=== PATIENT | male | born 1955 | race Caucasian/White ===

== ENCOUNTER 2017-05-24 10:37 | Inpatient (IN) | payer OTHER ==
[2017-05-24 10:44] VITALS: BMI 18.3
--- NOTE | 2017-05-24 10:57 | DR.GENAD ---
HPI - PCP Primary Care Physician: dr kamara in [place] - HPI Comment HPI Comment: HOSPITALIZE FOR PNEUMONIA AND DISCHARGE HOME ONE WEEK AGO. INCREASING SOB SINCE. WORSE TODAY. - Complaint/Symptoms Chief Complaint Doctors Comments: INCREASING SOB, CHEST PAIN, COUGH AND CONGESTION. Chief Complaint:: patient stated he has been out of home o2 for a week and has been very short of breath and congested. family called his doctor in [place] and was told to come to the er and get ems to take him to [place]. - Nurses notes reviewed Nurses Notes Review: Yes - Source History Provided: Patient, Family Member - Mode of Arrival Mode of Arrival: Wheelchair - Timing Onset of Chief Complaint: 05/17/17 Came on: Suddenly - Duration Duration: Constant Duration: Days - Severity Severity: Moderate PMH - PMH Past Medical History: Yes Past Medical History: COPD Past Surgical History: Yes Past Surgical History Comment: lung ca. - Family History History of Family Medical Conditions: No - Social History Does patient currently use any type of tobacco product: No Have you used tobacco products in the last 12 months: No Type of Tobacco Use: None Does any household member use tobacco: No Alcohol Use: None Do you use any recreational Drugs:: No Lives With: Family Lives Where: Home - infectious screening In the last 2 months have you had wt loss of >10#?: NO Have you had fever, night sweats or hemotysis?: No Have you traveled outside the country in the last 6 months?: No Isolation: Standard ROS - Review of Systems Constitutional: Malaise, Weakness, Fatigue, Loss of Appetite. negative: Chills Eyes: negative: Eye Pain, Discharge ENTM: Nose Discharge, Nose Congestion, Throat Pain. negative: Ear Pain Respiratoy: Productive Cough, Short of Breath, Wheezing. negative: Hemoptysis Cardiovascular: Chest Pain. negative: Edema, Palpitations Gastrointestinal/Abdominal: negative: Abdominal Pain, Diarrhea, Nausea, Vomiting Genitourinary: negative: Dysuria, Frequency, Hematuria Neurological: Headache, Weakness, Dizziness Musculoskeletal: Back Pain, Muscle Pain Integumentary: negative: Rash, Juandice Hematologic/Lymphatic: Easy Bleeding, Easy Bruising Endocrine: No Symptoms Reported All Other Systems: Reviewed and Negative PE - Vital Signs Vitals: Temperature 98.9 F Pulse Rate [Right Radial] 108 Pulse Rate 128 Respiratory Rate 20 Blood Pressure [Left Arm] 118/71 Blood Pressure 114/75 O2 Sat by Pulse Oximetry 96 - General Limitations: No Limitations General Appearance: Alert - Head Head Exam: Normal Inspection - Eyes Eye exam: Normal Appearance - ENT ENT Exam: Normal External Ear Exam External Ear Exam: Normal External Inspection TM/Canal Exam: Bilateral Normal Mouth Exam: Normal Inspection Throat Exam: Normal Inspection - Neck Neck Exam: Trachea Midline. negative: Tenderness, Meningismus, Lymphadenopathy - Chest Chest Inspection: Symmetric Chest Wall Rise - Respiratory Respiratory Exam: Normal Lung Sounds Bilat Respiratory Exam: Bilateral Wheezing, Bilateral Rhonchi, Upper Rhonchi, Lower Wheezing, Lower Rhonchi - Cardiovascular Cardiovascular Exam: Regular Rate, Normal Rhythm, Normal Heart Sounds - Abdominal Exam Abdominal Exam: Normal Bowel Sounds, Soft. negative: Tenderness - Extremities Extremities Exam: Normal Inspection - Back Back Exam: Normal Inspection - Neurologic Neurological Exam: Alert, Oriented X3 - Psychiatric Psychiatric Exam: Anxious - Skin Skin Exam: Normal Color MDM - Additional Information Additional Information Obtained From: Family - Differential Diagnosis Differential Diagnosis: BRONCHITIS, PNEUMONIA, COPD Course - Treatment Treatment: SEE ORDERS. - Consultation Consultation Comments: DISCUSS PATIENT WITH DR. BRYANT. HE WILL ADMIT PATIENT. - Education/Counseling Education/Counseling: Patient, Family, Education Educated On: Diagnosis ROR - Labs Reviewed Laboratory Results Reviewed?: Yes Result Diagrams: 05/24/17 11:00 05/24/17 11:06 Laboratory: WBC 15.6 X10^3/uL (3.6-10.0) H 05/24/17 11:00 RBC 4.62 X10^6/uL (4.7-6.0) L 05/24/17 11:00 Hgb 11.1 g/dL (13.5-18.0) L 05/24/17 11:00 Hct 35.0 % (42.0-54.0) L 05/24/17 11:00 MCV 75.7 fL (80.0-100.0) L 05/24/17 11:00 MCH 24.0 pg (27.0-34.0) L 05/24/17 11:00 MCHC 31.7 g/dL (33.0-35.0) L 05/24/17 11:00 RDW 21.9 % (11.6-16.5) H 05/24/17 11:00 Plt Count 294 X10^3/uL (150.0-450.0) 05/24/17 11:00 Plt Count Comment Adequate (ADEQUATE) 05/24/17 11:00 MPV 7.0 fL (7.4-11.0) L 05/24/17 11:00 Neut % 91.8 % (42.0-75.0) H 05/24/17 11:00 Lymph % 2.8 % (21.0-51.0) L 05/24/17 11:00 [place] % 5.2 % (0.0-13.0) 05/24/17 11:00 Eos % 0.1 % (0.9-2.9) L 05/24/17 11:00 Baso % 0.1 % (0.2-1.0) L 05/24/17 11:00 Neut # 14.3 x10^3/uL (2.2-4.8) H 05/24/17 11:00 Lymph # 0.4 X10^3/uL (1.3-2.9) L 05/24/17 11:00 [place] # 0.8 x10^3/uL (0.3-0.8) 05/24/17 11:00 Eos # 0.0 x10^3/uL (0.0-0.2) 05/24/17 11:00 Baso # 0.0 X10^3/uL (0.0-0.1) 05/24/17 11:00 Absolute Nucleated RBC 0.0 /100WBC 05/24/17 11:00 Total Counted 100 05/24/17 11:00 Neutrophils % (Manual) 75 % (39-76) 05/24/17 11:00 Band Neutrophils % 11 % (0-10) H 05/24/17 11:00 Lymphocytes % (Manual) 10 % (13-43) L 05/24/17 11:00 Monocytes % (Manual) 4 % (4-9) 05/24/17 11:00 Plt Morphology Comment Normal (NORMAL) 05/24/17 11:00 RBC Morphology Abnormal (NORMAL) 05/24/17 11:00 Anisocytosis 1+ A 05/24/17 11:00 Sample Site Rr 05/24/17 12:12 ABG pH 7.460 (7.35-7.45) H 05/24/17 12:12 ABG pCO2 51.0 mmHg (35.0-45.0) H* 05/24/17 12:12 ABG pO2 89.0 mmHg (80.0-100.0) 05/24/17 12:12 ABG HCO3 36.3 mmol/L (22-26) H* 05/24/17 12:12 ABG O2 Saturation 97.0 % (90-100) 05/24/17 12:12 ABG Base Excess 10.8 mmol/L (-2.0-2.0) H 05/24/17 12:12 Jackson Test Pos 05/24/17 12:12 A-a Gradient 75.0 mmHg 05/24/17 12:12 FiO2 32.000 05/24/17 12:12 Blood Gas Comments Pt malachi well. cdn 05/24/17 12:12 Sodium 143 mmol/L (136-145) 05/24/17 11:06 Corrected Sodium 144 mmol/L (136-145) 05/24/17 11:06 Potassium 3.9 mmol/L (3.5-5.1) 05/24/17 11:06 Chloride 102 mmol/L (98-107) 05/24/17 11:06 Carbon Dioxide 35.0 mmol/L (21-32) H 05/24/17 11:06 BUN 21 mg/dL (7-18) H 05/24/17 11:06 Creatinine 0.86 mg/dL (0.70-1.30) 05/24/17 11:06 Est GFR (MDRD) Af Amer > 60 (>60) 05/24/17 11:06 Est GFR (MDRD) Non-Af > 60 (>60) 05/24/17 11:06 Glucose 156 mg/dL (65-99) H 05/24/17 11:06 Lactic Acid 1.1 mmol/L (0.4-2.0) 05/24/17 11:06 Calcium 9.2 mg/dL (8.5-10.1) 05/24/17 11:06 Corrected Calcium 10.6 mg/dL (8.5-10.1) H 05/24/17 11:06 Total Bilirubin 0.70 mg/dL (0.2-1.0) 05/24/17 11:06 AST 15 Units/L (15-37) 05/24/17 11:06 ALT 18 Units/L (12-78) 05/24/17 11:06 Alkaline Phosphatase 67 Units/L (46-116) 05/24/17 11:06 Creatine Kinase 15 Units/L (39-308) L 05/24/17 11:06 CK-MB (CK-2) < 1.0 ng/mL (0-4.0) 05/24/17 11:06 CK/CKMB % Calc 6.7 % (<4) 05/24/17 11:06 Troponin I < 0.02 ng/mL (0-1.5) 05/24/17 11:06 C-Reactive Protein 190.00 mg/L (0-3.0) H 05/24/17 11:06 Total Protein 7.1 g/dL (6.4-8.2) 05/24/17 11:06 Albumin 2.3 g/dL (3.4-5.0) L 05/24/17 11:06 Globulin 4.8 g/dL (2.5-4.5) H 05/24/17 11:06 Albumin/Globulin Ratio 0.5 Ratio (1.1-2.1) L 05/24/17 11:06 - XRAY XRAY Findings: REPORT DISCUSS WITH PATIENT. - EKG Rhythm: NSR (EKG NOTED) - Diagnosis Discharge Problem: Bronchitis, COPD (chronic obstructive pulmonary disease), Pneumonia - Discharge Plan Disposition: ADMITTED INPATIENT Condition: Stable - Follow ups/Referrals - Instructions
[2017-05-24] MEDS ORDERED: MAXIPIME 1 GM IV PREMIX 1 GM/50 ML BAG IV ONE (11:22)
[2017-05-24 11:24] LABS: BASOPHILS % (AUTO) 0.1 % (0.2-1.0); EOSINOPHILS % (AUTO) 0.1 % (0.9-2.9); HEMOGLOBIN 11.1 g/dL (13.5-18.0); LYMPHOCYTES # (AUTO) 0.4 X10^3/uL (1.3-2.9); LYMPHOCYTES % (AUTO) 2.8 % (21.0-51.0); MEAN CORPUSCULAR HGB CONC 31.7 g/dL (33.0-35.0); MEAN CORPUSCULAR VOLUME 75.7 fL (80.0-100.0); MONOCYTES # (AUTO) 0.8 x10^3/uL (0.3-0.8); MONOCYTES % (AUTO) 5.2 % (0.0-13.0); NEUTROPHILS # (AUTO) 14.3 x10^3/uL (2.2-4.8); NEUTROPHILS % (AUTO) 91.8 % (42.0-75.0); PLATELET COUNT 294 X10^3/uL (150.0-450.0); RED BLOOD COUNT 4.62 X10^6/uL (4.7-6.0); RED CELL DISTRIBUTION WIDTH 21.9 % (11.6-16.5); WHITE BLOOD COUNT 15.6 X10^3/uL (3.6-10.0)
[2017-05-24] MEDS ORDERED: NS 100 ML IV 100 ML IV ONE (11:26)
[2017-05-24] MEDS ORDERED: MAXIPIME VIAL 1 GM ONE ×2 (11:26→20:29)
[2017-05-24] MEDS: NS 1000 ML 1,000 ML IV SCH ×2 (11:40→21:05)
[2017-05-24 11:41] LABS: LACTIC ACID 1.1 mmol/L (0.4-2.0)
[2017-05-24 11:44] LABS: BLOOD UREA NITROGEN 21 mg/dL (7-18); CALCIUM 9.2 mg/dL (8.5-10.1); CHLORIDE 102 mmol/L (98-107); COR NA(FOR HYPERGLY) 144 mmol/L (136-145); CREATININE 0.86 mg/dL (0.70-1.30); SODIUM 143 mmol/L (136-145); TROPONIN I < 0.02 ng/mL (0-1.5); eGFR BLACK RACES > 60 (>60); eGFR NON BLACK RACES > 60 (>60)
[2017-05-24 11:49] LABS: ALANINE AMINOTRANSFERASE 18 Units/L (12-78); ALBUMIN 2.3 g/dL (3.4-5.0); ALKALINE PHOSPHATASE 67 Units/L (46-116); ASPARTATE AMINO TRANSFERASE 15 Units/L (15-37); CKMB % 6.7 % (<4); COR CA(FOR HYPOALB) 10.6 mg/dL (8.5-10.1); CREATINE KINASE 15 Units/L (39-308); CREATINE KINASE MB < 1.0 ng/mL (0-4.0); TOTAL PROTEIN 7.1 g/dL (6.4-8.2)
--- NOTE | 2017-05-24 11:52 | RAD ---
Examination: Chest , PA and lateral views History: Chest pain, SOB, lung CA Comparison reference: None Findings: The heart is not enlarged. The heart and mediastinum are not displaced to the right. There is extensive pleural-parenchymal opacification at the right base obscuring the right lower lung, diap hragm and costophrenic angle. The left lung is over expanded. A left subclavian catheter extends to t he SVC. There is an esophageal stent present. Minimal wedge deformity involves T5 and T6 vertebral juarez dies. Impression: 1. Pleural-parenchymal disease right base with volume loss. Findings are nonspecific and may represen t inflammatory and/or neoplastic disease. Correlate with prior imaging/CT. 2. Esophageal stent is present. 3. Slight contour deformity thoracic vertebrae may be related to old trauma or metastatic disease. Reported By:
[2017-05-24 11:57] LABS: ANISOCYTOSIS 1+; BAND NEUTROPHILS % 11 % (0-10); PLATELET MORPHOLOGY COMMENT NORMAL (NORMAL)
[2017-05-24 12:17] LABS: ABG BASE EXCESS 10.8 mmol/L (-2.0-2.0)
[2017-05-24 12:18] LABS: ABG ALLEN TEST POS; ABG HCO3 36.3 mmol/L (22-26)
[2017-05-24] MEDS: LEVAQUIN PREMIX IV 500 MG 500 MG/100 ML BAG IV SCH (16:11)
[2017-05-24 17:29] LABS: BILIRUBIN,URINE NEGATIVE (NEGATIVE); BLOOD/HEMOGLOBIN,URINE 1+ (NEGATIVE); GLUCOSE, URINE NEGATIVE (NEGATIVE); KETONES,URINE NEGATIVE (NEGATIVE); LEUKOCYTE ESTERASE ,URINE 1+ (NEGATIVE); NITRITES,URINE NEGATIVE (NEGATIVE); PROTEIN,URINE 2+ (NEGATIVE); UROBILINOGEN,URINE NORMAL (NORMAL)
[2017-05-24] MEDS: DUONEB 0.5 MG/3 MG NEB SCH ×2 (17:33→20:37)
[2017-05-24 17:36] LABS: APPEARANCE,URINE CLEAR (CLEAR); BACTERIA,URINE TRACE /HPF (NEGATIVE); COLOR,URINE YELLOW (YELLOW); RBC,URINE 0-1 /HPF (NEGATIVE); SQUAMOUS EPITHELIAL CELL,UR FEW /HPF (NEGATIVE)
[2017-05-24 17:47] LABS: CKMB % 6.7 % (<4); CREATINE KINASE 15 Units/L (39-308); CREATINE KINASE MB < 1.0 ng/mL (0-4.0); TROPONIN I < 0.02 ng/mL (0-1.5)
[2017-05-24] MEDS: SPIKE MINIBAG IV SCH (21:05)
[2017-05-24] MEDS: NS IV SCH (21:05)
[2017-05-24] MEDS: MAXIPIME IV SCH (21:05)
[2017-05-24 23:38] LABS: CKMB % 7.7 % (<4); CREATINE KINASE 13 Units/L (39-308); CREATINE KINASE MB < 1.0 ng/mL (0-4.0); TROPONIN I < 0.02 ng/mL (0-1.5)
[2017-05-25] MEDS: DUONEB 0.5 MG/3 MG NEB SCH ×3 (00:54→08:46)
[2017-05-25] MEDS: NS 1000 ML 1,000 ML IV SCH ×3 (05:44→21:48)
[2017-05-25] MEDS ORDERED: MAXIPIME VIAL 1 GM ONE (05:53)
[2017-05-25] MEDS ORDERED: NS 100 ML IV + SPIKE MINIBAG* 100 ML IV ONE (05:54)
[2017-05-25] MEDS: NS IV SCH ×3 (06:15→21:27)
[2017-05-25] MEDS: MAXIPIME IV SCH ×3 (06:15→21:27)
[2017-05-25] MEDS: SPIKE MINIBAG IV SCH ×3 (06:15→21:27)
[2017-05-25 06:17] LABS: BASOPHILS % (AUTO) 0.2 % (0.2-1.0); EOSINOPHILS % (AUTO) 0.4 % (0.9-2.9); HEMATOCRIT 30.4 % (42.0-54.0); HEMOGLOBIN 9.6 g/dL (13.5-18.0); LYMPHOCYTES # (AUTO) 0.3 X10^3/uL (1.3-2.9); LYMPHOCYTES % (AUTO) 2.6 % (21.0-51.0); MEAN CORPUSCULAR HGB CONC 31.7 g/dL (33.0-35.0); MEAN CORPUSCULAR VOLUME 75.8 fL (80.0-100.0); MEAN PLATELET VOLUME 7.1 fL (7.4-11.0); MONOCYTES # (AUTO) 0.6 x10^3/uL (0.3-0.8); MONOCYTES % (AUTO) 4.9 % (0.0-13.0); NEUTROPHILS # (AUTO) 11.8 x10^3/uL (2.2-4.8); NEUTROPHILS % (AUTO) 91.9 % (42.0-75.0); PLATELET COUNT 253 X10^3/uL (150.0-450.0); RED BLOOD COUNT 4.01 X10^6/uL (4.7-6.0); RED CELL DISTRIBUTION WIDTH 21.2 % (11.6-16.5); WHITE BLOOD COUNT 12.8 X10^3/uL (3.6-10.0)
[2017-05-25 06:30] LABS: ALANINE AMINOTRANSFERASE 14 Units/L (12-78); ALKALINE PHOSPHATASE 63 Units/L (46-116); ASPARTATE AMINO TRANSFERASE 11 Units/L (15-37); BLOOD UREA NITROGEN 18 mg/dL (7-18); CALCIUM 9.3 mg/dL (8.5-10.1); CARBON DIOXIDE 34.1 mmol/L (21-32); CHLORIDE 102 mmol/L (98-107); COR CA(FOR HYPOALB) 10.9 mg/dL (8.5-10.1); COR NA(FOR HYPERGLY) 142 mmol/L (136-145); CREATININE 0.61 mg/dL (0.70-1.30); MAGNESIUM 1.6 mg/dL (1.7-2.9); SODIUM 141 mmol/L (136-145); TOTAL PROTEIN 6.6 g/dL (6.4-8.2); eGFR BLACK RACES > 60 (>60); eGFR NON BLACK RACES > 60 (>60)
--- NOTE | 2017-05-25 06:59 | RAD ---
Examination: Portable AP chest History: Chest pain SOB Comparison reference 05/24/2017 Findings: Again is noted normal heart size, deviation of heart and mediastinum to the right, extensiv e pleural-parenchymal opacification at the right base. Stable position of esophageal stent. Left subc lavian catheter is again noted in the SVC. Impression: No change since 1 day earlier. Reported By:
[2017-05-25 07:08] LABS: ANISOCYTOSIS 1+; BAND NEUTROPHILS % 5 % (0-10); PLATELET MORPHOLOGY COMMENT NORMAL (NORMAL)
[2017-05-25 07:14] LABS: ERYTHROCYTE SEDIMENTATION RATE 92 MM/HOUR (0-15)
[2017-05-25] MEDS ORDERED: PULMICORT NEB TX 0.5 MG NEB ONE (08:49)
[2017-05-25] MEDS: PULMICORT NEB TX 0.5 MG NEB SCH ×2 (08:50→20:41)
[2017-05-25] MEDS: PATIENT'S HOME MEDICATION (Budesonide-Formoterol 1 INH) INH SCH ×2 (08:50→09:57)
[2017-05-25] MEDS: LEVAQUIN PREMIX IV 500 MG 500 MG/100 ML BAG IV SCH (09:48)
[2017-05-25] MEDS: LANOXIN PO SCH (09:49)
[2017-05-25] MEDS: PREDNISONE TAB 10 MG PO SCH (09:49)
[2017-05-25] MEDS: FOLIC ACID TAB 1 MG PO SCH (09:53)
[2017-05-25] MEDS: MIDODRINE HCL 2.5 MG PO SCH ×2 (09:54→21:26)
[2017-05-25] MEDS: NIACIN PO SCH (09:54)
[2017-05-25] MEDS: ASCORBIC ACID PO SCH (09:54)
[2017-05-25] MEDS: POLYSACCHARIDE IRON COMPLEX PO SCH (09:54)
[2017-05-25] MEDS: FERROUS FUMARATE PO SCH (09:54)
[2017-05-25] MEDS: XOPENEX 1.25 MG/3 ML NEBULE NEB SCH ×4 (09:56→20:41)
--- NOTE | 2017-05-25 11:31 | DR.H&P ---
H&P - History & Physical for Day of: H&P Date: 05/24/17 - Chief Complaint Chief Complaint: short of breath - Allergies Allergies/Adverse Reactions: Allergies Allergy/AdvReac Type Severity Reaction Status Date / Time No Known Drug Allergies Allergy Verified 05/24/17 10:38 - History of Present Illness History of Present Illness: is a 62 year old white male who presented to the emergency room with complaints of increasing shortness of breath, congestion, cough, and chest pain x 1 week. Patient reports that he was hospitalized at [facility] for pneumonia. He reports being discharged one week ago. Patient states that symptoms have increasingly gotten worse since discharge. Medical history includes the following: hard of hearing, chronic bronchitis, COPD, arthritis, anemia, PEG tube, and stage 4 lung cancer for which patient has recently undergone chemo therapy and radiation. Associated symptoms include malaise, weakness, fatigue, loss of appetite, nasal congestion and discharge, throat pain, wheezing, headache, dizziness, and lower back pain. On examination, patient is noted to be tachycardic with sinus tachycardia noted on director cardiac. Bilateral lungs are noted with scattered wheezing and rhonchi throughout. Abdomen is flat, soft, and non-tender with normal bowel sounds noted in all quadrants. There is good range of motion noted in all extremities. On arrival to the ER, vitals were 98.9, 128, 20, 94% RA, 114/75. Labs, chest xray, and EKG were obtained. Abnormal lab values include the following: wbc 15.6, rbc 4.62, hgb 11.1, hct 35, carbon dioxide 35, bun 21, glucose 156, creatine kinase 15, CRP 190, albumin 4.3, globulin 4.8, A/G ratio 0.5, digoxin less than 0.30. ABG reported PH 7.460, pc02 51, p02 89, hc03 36.3, 02 saturation 97%, base excess 10.8. Urinalysis reported urine wbc 4-6, bacteria trace, leukocytes 1+, nitirites negative, urine protein 2+. Cardiac enzymes within normal limits. Blood cultures were obtained and are pending. Chest xray reported pleural-parenchymal disease right base with volume loss. Esophageal stent. Slight contour deformity thoracic vertebrae may be related to old trauma or metastatic disease. EKG reported sinus tachycardia with HR 117. He was given a neb tx in the ER with only slight improvement in shortness of breath noted. We admitted patient to the hospital for further evaluation and treatment. He was started on levaquin 750mg iv daily and maxipime 1gm iv q8h. We plan to follow up with AM labs and continue to monitor patient. - Past Medical History Past Medical History: Anemia, Arthritis, COPD Additional Medical History: stage 4 lung cancer - Past Surgical History Surgical History: Other Additional Surgical History: peg tube, esophageal stent - Family History Family Medical History: Cancer - Social History Does patient currently use any type of tobacco product: No Have you used tobacco products in the last 12 months: No Type of Tobacco Use: None How many years tobacco product used: 40 Does any household member use tobacco: No Alcohol Use: None Drug Use: Prescription Drugs - Medications Home Medications: Budesonide-Formoterol [SYMBICORT INH 160-4.5 mcg (10.2 g) *] 1 inh INH BID 05/24 [History Confirmed 05/24/17] Ciprofloxacin HCl [CIPRO 500 MG TAB *] 500 mg PO BID 05/24/17 [History Confirmed 05/24/17] Digoxin [Digitek] 250 mcg PO DAILY 05/24/17 [History Confirmed 05/24/17] Folic Acid [Folic Acid Tab 1 mg] 1 mg PO DAILY 05/24/17 [History Confirmed 05/24] Hydrocodone/Acetaminophen [Hydrocodone-Acetamin 10-325 mg] 1 tab PO Q6HR PRN [History Confirmed 05/24/17] Iron Fum,Ps Cmp/Vit C/Niacin [Integra 125/40/3 mg] 1 tab PO DAILY 05/24/17 [ History Confirmed 05/24/17] Midodrine HCl 2.5 mg PO BID 05/24/17 [History Confirmed 05/24/17] Phenylephrine/Dm/Acetaminop/GG [Mucinex Fast-Max Sev Cold Liq] 20 ml PO Q4H [History Confirmed 05/24/17] Prednisone [PREDNISONE TAB 10 MG *] 10 mg PO DAILY 05/24/17 [History Confirmed 05/24/17] - Physical Exam Vital Signs: Temperature 98.1 F Pulse Rate [Left Brachial] 125 Pulse Rate [Right Radial] 108 Pulse Rate 102 Respiratory Rate 20 Blood Pressure [Left Arm] 106/55 Blood Pressure 114/75 O2 Sat by Pulse Oximetry 93
[2017-05-25] MEDS ORDERED: PROVENTIL NEB TX 0.083% 2.5MG/ 3ML NEB SCH (13:00)
[2017-05-25] MEDS: TAB-A-VITE PO SCH (15:21)
[2017-05-25] MEDS ORDERED: LANOXIN PO ONE (15:34)
[2017-05-26] MEDS: NS 1000 ML 1,000 ML IV SCH ×3 (04:25→21:42)
[2017-05-26] MEDS: NS IV SCH ×3 (05:35→21:38)
[2017-05-26] MEDS: MAXIPIME IV SCH ×3 (05:35→21:38)
[2017-05-26] MEDS: SPIKE MINIBAG IV SCH ×3 (05:35→21:38)
[2017-05-26 06:15] LABS: ALANINE AMINOTRANSFERASE 14 Units/L (12-78); ALBUMIN 1.8 g/dL (3.4-5.0); ALKALINE PHOSPHATASE 63 Units/L (46-116); ASPARTATE AMINO TRANSFERASE 12 Units/L (15-37); BLOOD UREA NITROGEN 16 mg/dL (7-18); CARBON DIOXIDE 33.1 mmol/L (21-32); CHLORIDE 103 mmol/L (98-107); COR CA(FOR HYPOALB) 10.8 mg/dL (8.5-10.1); CREATININE 0.52 mg/dL (0.70-1.30); SODIUM 141 mmol/L (136-145); TOTAL PROTEIN 6.3 g/dL (6.4-8.2); eGFR BLACK RACES > 60 (>60); eGFR NON BLACK RACES > 60 (>60)
[2017-05-26 06:23] LABS: BASOPHILS % (AUTO) 0.3 % (0.2-1.0); EOSINOPHILS # (AUTO) 0.1 x10^3/uL (0.0-0.2); EOSINOPHILS % (AUTO) 0.6 % (0.9-2.9); HEMATOCRIT 27.4 % (42.0-54.0); HEMOGLOBIN 8.8 g/dL (13.5-18.0); LYMPHOCYTES # (AUTO) 0.5 X10^3/uL (1.3-2.9); LYMPHOCYTES % (AUTO) 5.9 % (21.0-51.0); MEAN CORPUSCULAR HEMOGLOBIN 24.4 pg (27.0-34.0); MEAN CORPUSCULAR HGB CONC 32.2 g/dL (33.0-35.0); MEAN CORPUSCULAR VOLUME 75.9 fL (80.0-100.0); MEAN PLATELET VOLUME 7.3 fL (7.4-11.0); MONOCYTES # (AUTO) 0.6 x10^3/uL (0.3-0.8); MONOCYTES % (AUTO) 6.1 % (0.0-13.0); NEUTROPHILS # (AUTO) 8.1 x10^3/uL (2.2-4.8); NEUTROPHILS % (AUTO) 87.1 % (42.0-75.0); PLATELET COUNT 226 X10^3/uL (150.0-450.0); RED BLOOD COUNT 3.61 X10^6/uL (4.7-6.0); RED CELL DISTRIBUTION WIDTH 21.6 % (11.6-16.5); WHITE BLOOD COUNT 9.3 X10^3/uL (3.6-10.0)
[2017-05-26 06:43] LABS: PLATELET MORPHOLOGY COMMENT NORMAL (NORMAL)
--- NOTE | 2017-05-26 07:01 | RAD ---
Examination: Portable AP chest History: Chest pain SOB follow-up Comparison reference 05/25/2017 Findings: There is no change in appearance of the heart, volume loss right lung with pleural-parenchy mal opacity right base, hyper expanded left lung. No developing pneumothorax or left pulmonary abnorm ality is noted. Position of esophageal stent is stable. Impression: No change since 1 day earlier. Reported By:
[2017-05-26 07:10] LABS: ERYTHROCYTE SEDIMENTATION RATE 111 MM/HOUR (0-15)
[2017-05-26] MEDS: FOLIC ACID TAB 1 MG PO SCH (08:33)
[2017-05-26] MEDS: FERROUS FUMARATE PO SCH (08:34)
[2017-05-26] MEDS: LANOXIN PO SCH (08:34)
[2017-05-26] MEDS: ASCORBIC ACID PO SCH (08:34)
[2017-05-26] MEDS: POLYSACCHARIDE IRON COMPLEX PO SCH (08:34)
[2017-05-26] MEDS: NIACIN PO SCH (08:34)
[2017-05-26] MEDS: LEVAQUIN PREMIX IV 500 MG 500 MG/100 ML BAG IV SCH (08:35)
[2017-05-26] MEDS: PREDNISONE TAB 10 MG PO SCH (08:36)
[2017-05-26] MEDS: MIDODRINE HCL 2.5 MG PO SCH ×2 (08:36→21:32)
[2017-05-26] MEDS: TAB-A-VITE PO SCH (08:36)
[2017-05-26] MEDS: XOPENEX 1.25 MG/3 ML NEBULE NEB SCH ×4 (09:20→21:01)
[2017-05-26] MEDS: PULMICORT NEB TX 0.5 MG NEB SCH ×2 (09:20→21:01)
[2017-05-26] MEDS ORDERED: PHARMACY CONSULT - TPN XX SCH (10:00)
[2017-05-26] MEDS: SOLU-Medrol 40 MG VIAL IVP SCH ×3 (10:37→21:37)
[2017-05-26] MEDS: MEGACE PO SCH ×2 (10:37→21:32)
[2017-05-26] MEDS: MUCINEX EXPECTORANT PO SCH ×2 (10:38→21:34)
[2017-05-26] MEDS: ALBUMIN HUMAN 25%- 100ML 100 ML IV SCH (10:41)
[2017-05-26] MEDS ORDERED: PROCALAMINE 3 % 1,000 ML IV SCH (11:00)
--- NOTE | 2017-05-26 11:36 | PCM.PROG ---
Progress Note - Progress Note for Day of Date: 05/25/17 - Subjective Subjective: WAS ADMITTED FOR BRONCHITIS, COPD EXACERBATION, AND HX OF STAGE 4 LUNG CANCER. TODAY, HE IS ALERT AND ORIENTED, LYING IN BED ON MORNING ROUNDS. PATIENTS FAMILY MEMEBERS ARE AT BEDSIDE. TODAY, HE CONTINUES WITH COMPLAINTS OF SHORNTESS OF BREATH, GENERALIZED WEAKNESS, AND A NON- PRODUCTIVE COUGH. ON EXAMINATION, HEART IS REGULAR IN RATE AND RHYTHM. LUNGS CONTINUE WITH SCATTERED WHEEZING AND RHONCHI THROUGHOUT. HE IS CURRENTLY UTILIZING OXYGEN VIA NASAL CANNULA AT 2L/MIN. ABDOMEN IS FLAT, SOFT, AND NON- TENDER WITH NORMAL BOWEL SOUNDS NOTED IN ALL QUADRANTS. THERE IS NORMAL RANGE OF MOTION NOTED TO ALL EXTREMITIES. HIS VITAL SIGNS THIS MORNING ARE 98.1-125-20 -93%-106/55. ABNORMAL LAB VALUES INCLUDE THE FOLLOWING: RBC 3.61, HGB 8.8, HCT 27.4, CARBON DIOXIDE 34.1, CREATININE 0.61, GLUCOSE 127, MAGNESIUM 1.6, AST 11, CRP 225.90, ALBUMIN 2.0, GLOBULIN 4.6, A/G RATIO 0.4, DIGOXIN 0.83. A CHEST XRAY WAS OBTAINED THIS MORNING AND REPORTS DEVIATION OF HEART AND MEDIASTINUM TO THE RIGHT, EXTENSIVE PLEURAL PARENCHYMAL OPACIFICATION AT THE RIGHT BASE. STABLE POSITION OF ESOPHAGEAL STENT. LEFT SUBCLAVIAN CATHETER NOTED IN THE SVC. EKG FROM 00:38 REPORTS SINUS TACHYCARDIA WITH HR 113. CARDIAC ENZYMES HAVE BEEN WITHIN NORMAL LIMITS. HE DENIES CHEST PAIN AT THIS TIME. URINE AND BLOOD CULTURES ARE CURRENTLY PENDING. TODAY, WE WILL CONTINUE WITH LEVAQUIN AND MAXIPIME IV AND RESPIRATORY TREATMENTS. WE PLAN TO FOLLOW UP WITH AM LABS AND CONTINUE TO MONITOR PATIENT. - Past Medical Family Social History Past Med/Fam/Surg Hx: No changes since H&P Allergies: Allergies No Known Drug Allergies Allergy (Verified 05/24/17 10:38) - Review of Systems ROS: No change since H&P - Vital Signs and I&O's Vital Signs: Temperature 98.9 F Pulse Rate [Left Brachial] 127 Pulse Rate [Right Radial] 108 Pulse Rate 116 Respiratory Rate 20 Blood Pressure [Left Arm] 119/66 Blood Pressure 114/75 O2 Sat by Pulse Oximetry 91 Intake and Output: Intake & Output 05/23/17 05/24/17 05/25/17 05/26/17 11:59 11:59 11:59 11:59 Intake Total 240 1700 Output Total 950 Balance 240 750 - Physical Exam Oriented: Normal Eyes: Normal Ear: Normal Nose: Other (nasal congestion ) Throat: Normal Respiratory: Generalized, Wheezes, Rhonchi Cardiovascular: Normal : Normal Auscultation: Bowel Sounds: Normal Palpation: Normal Tenderness: Normal Skin: Decreased Turgur Musculoskeletal: Normal Psychiatric: Normal Mood Description: Calm Affect: Normal Speech Pattern: Clear, Appropriate - Laboratory and Diagnostics Result Diagrams: 05/26/17 04:13 05/26/17 04:13 Labs: 05/24/17 17:17 Urine,Clean Catch Urine Culture - Final Laboratory WBC 9.3 X10^3/uL (3.6-10.0) 05/26/17 04:13 RBC 3.61 X10^6/uL (4.7-6.0) L 05/26/17 04:13 Hgb 8.8 g/dL (13.5-18.0) L 05/26/17 04:13 Hct 27.4 % (42.0-54.0) L 05/26/17 04:13 MCV 75.9 fL (80.0-100.0) L 05/26/17 04:13 MCH 24.4 pg (27.0-34.0) L 05/26/17 04:13 MCHC 32.2 g/dL (33.0-35.0) L 05/26/17 04:13 RDW 21.6 % (11.6-16.5) H 05/26/17 04:13 Plt Count 226 X10^3/uL (150.0-450.0) 05/26/17 04:13 Plt Count Comment Adequate (ADEQUATE) 05/26/17 04:13 MPV 7.3 fL (7.4-11.0) L 05/26/17 04:13 Neut % 87.1 % (42.0-75.0) H 05/26/17 04:13 Lymph % 5.9 % (21.0-51.0) L 05/26/17 04:13 [place] % 6.1 % (0.0-13.0) 05/26/17 04:13 Eos % 0.6 % (0.9-2.9) L 05/26/17 04:13 Baso % 0.3 % (0.2-1.0) 05/26/17 04:13 Neut # 8.1 x10^3/uL (2.2-4.8) H 05/26/17 04:13 Lymph # 0.5 X10^3/uL (1.3-2.9) L 05/26/17 04:13 [place] # 0.6 x10^3/uL (0.3-0.8) 05/26/17 04:13 Eos # 0.1 x10^3/uL (0.0-0.2) 05/26/17 04:13 Baso # 0.0 X10^3/uL (0.0-0.1) 05/26/17 04:13 Absolute Nucleated RBC 0.0 /100WBC 05/26/17 04:13 Total Counted 100 05/25/17 04:46 Neutrophils % (Manual) 87 % (39-76) H 05/25/17 04:46 Band Neutrophils % 5 % (0-10) 05/25/17 04:46 Lymphocytes % (Manual) 4 % (13-43) L 05/25/17 04:46 Monocytes % (Manual) 3 % (4-9) L 05/25/17 04:46 Eosinophils % (Manual) 1 % (0-6) 05/25/17 04:46 Plt Morphology Comment Normal (NORMAL) 05/26/17 04:13 RBC Morphology Abnormal (NORMAL) 05/26/17 04:13 Anisocytosis 1+ A 05/25/17 04:46 ESR 111 MM/HOUR (0-15) H 05/26/17 04:13 Sample Site Rr 05/24/17 12:12 ABG pH 7.460 (7.35-7.45) H 05/24/17 12:12 ABG pCO2 51.0 mmHg (35.0-45.0) H* 05/24/17 12:12 ABG pO2 89.0 mmHg (80.0-100.0) 05/24/17 12:12 ABG HCO3 36.3 mmol/L (22-26) H* 05/24/17 12:12 ABG O2 Saturation 97.0 % (90-100) 05/24/17 12:12 ABG Base Excess 10.8 mmol/L (-2.0-2.0) H 05/24/17 12:12 Jackson Test Pos 05/24/17 12:12 A-a Gradient 75.0 mmHg 05/24/17 12:12 FiO2 32.000 05/24/17 12:12 Blood Gas Comments Pt malachi well. cdn 05/24/17 12:12 Sodium 141 mmol/L (136-145) 05/26/17 04:13 Corrected Sodium TNP 05/26/17 04:13 Potassium 3.8 mmol/L (3.5-5.1) 05/26/17 04:13 Chloride 103 mmol/L (98-107) 05/26/17 04:13 Carbon Dioxide 33.1 mmol/L (21-32) H 05/26/17 04:13 BUN 16 mg/dL (7-18) 05/26/17 04:13 Creatinine 0.52 mg/dL (0.70-1.30) L 05/26/17 04:13 Est GFR (MDRD) Af Amer > 60 (>60) 05/26/17 04:13 Est GFR (MDRD) Non-Af > 60 (>60) 05/26/17 04:13 Glucose 80 mg/dL (65-99) 05/26/17 04:13 Lactic Acid 1.1 mmol/L (0.4-2.0) 05/24/17 11:06 Calcium 9.0 mg/dL (8.5-10.1) 05/26/17 04:13 Corrected Calcium 10.8 mg/dL (8.5-10.1) H 05/26/17 04:13 Magnesium 1.6 mg/dL (1.7-2.9) L 05/25/17 04:46 Total Bilirubin 0.40 mg/dL (0.2-1.0) 05/26/17 04:13 AST 12 Units/L (15-37) L 05/26/17 04:13 ALT 14 Units/L (12-78) 05/26/17 04:13 Alkaline Phosphatase 63 Units/L (46-116) 05/26/17 04:13 Creatine Kinase 13 Units/L (39-308) L 05/24/17 22:58 CK-MB (CK-2) < 1.0 ng/mL (0-4.0) 05/24/17 22:58 CK/CKMB % Calc 7.7 % (<4) 05/24/17 22:58 Troponin I < 0.02 ng/mL (0-1.5) 05/24/17 22:58 C-Reactive Protein 276.50 mg/L (0-3.0) H 05/26/17 04:13 Total Protein 6.3 g/dL (6.4-8.2) L 05/26/17 04:13 Albumin 1.8 g/dL (3.4-5.0) L 05/26/17 04:13 Globulin 4.5 g/dL (2.5-4.5) 05/26/17 04:13 Albumin/Globulin Ratio 0.4 Ratio (1.1-2.1) L 05/26/17 04:13 Specimen Type Clean catch urine 05/24/17 17:17 Urine Color Yellow (YELLOW) 05/24/17 17:17 Urine Appearance Clear (CLEAR) 05/24/17 17:17 Urine pH 5.0 (5.0 - 8.0) 05/24/17 17:17 Ur Specific [place] 1.020 (1.000-1.030) 05/24/17 17:17 Urine Protein 2+ (NEGATIVE) 05/24/17 17:17 Urine Glucose (UA) Negative (NEGATIVE) 05/24/17 17:17 Urine Ketones Negative (NEGATIVE) 05/24/17 17:17 Urine Occult Blood 1+ (NEGATIVE) 05/24/17 17:17 Urine Nitrite Negative (NEGATIVE) 05/24/17 17:17 Urine Bilirubin Negative (NEGATIVE) 05/24/17 17:17 Urine Urobilinogen Normal (NORMAL) 05/24/17 17:17 Ur Leukocyte Esterase 1+ (NEGATIVE) 05/24/17 17:17 Urine RBC 0-1 /HPF (NEGATIVE) 05/24/17 17:17 Urine WBC 4-6 /HPF (NEGATIVE) 05/24/17 17:17 Ur Squamous Epith Cells Few /HPF (NEGATIVE) 05/24/17 17:17 Urine Bacteria Trace /HPF (NEGATIVE) 05/24/17 17:17 Ur Culture Indicated? Yes/culture set up 05/24/17 17:17 Digoxin 0.83 ng/mL (0.9-2) L 05/26/17 04:13 - Plan (1) Bronchopneumonia Status: Acute Plan: continue pneumonia protocol, continue levaquin and maxipime, continue respiratory tx and supplemental oxygen, continue to monitor (2) COPD exacerbation Status: Acute Plan: continue respiratory tx, continue supplemental oxygen, continue to monitor
[2017-05-26] MEDS: MUCOMYST 20% 200 MG/ML NEB SCH ×2 (12:42→21:02)
[2017-05-27 04:03] LABS: BASOPHILS % (AUTO) 0 % (0.2-1.0); HEMATOCRIT 25.2 % (42.0-54.0); HEMOGLOBIN 8.1 g/dL (13.5-18.0); LYMPHOCYTES # (AUTO) 0.3 X10^3/uL (1.3-2.9); LYMPHOCYTES % (AUTO) 3.9 % (21.0-51.0); MEAN CORPUSCULAR HEMOGLOBIN 24.2 pg (27.0-34.0); MEAN CORPUSCULAR HGB CONC 32.1 g/dL (33.0-35.0); MEAN CORPUSCULAR VOLUME 75.2 fL (80.0-100.0); MONOCYTES # (AUTO) 0.2 x10^3/uL (0.3-0.8); MONOCYTES % (AUTO) 2.4 % (0.0-13.0); NEUTROPHILS # (AUTO) 6.1 x10^3/uL (2.2-4.8); NEUTROPHILS % (AUTO) 93.7 % (42.0-75.0); PLATELET COUNT 201 X10^3/uL (150.0-450.0); RED BLOOD COUNT 3.35 X10^6/uL (4.7-6.0); RED CELL DISTRIBUTION WIDTH 21.5 % (11.6-16.5); WHITE BLOOD COUNT 6.5 X10^3/uL (3.6-10.0)
[2017-05-27 04:17] LABS: ALANINE AMINOTRANSFERASE 14 Units/L (12-78); ALKALINE PHOSPHATASE 60 Units/L (46-116); ASPARTATE AMINO TRANSFERASE 12 Units/L (15-37); BLOOD UREA NITROGEN 20 mg/dL (7-18); CALCIUM 8.8 mg/dL (8.5-10.1); CARBON DIOXIDE 33.1 mmol/L (21-32); CHLORIDE 102 mmol/L (98-107); COR CA(FOR HYPOALB) 10.4 mg/dL (8.5-10.1); COR NA(FOR HYPERGLY) 140 mmol/L (136-145); CREATININE 0.57 mg/dL (0.70-1.30); SODIUM 139 mmol/L (136-145); TOTAL PROTEIN 6.3 g/dL (6.4-8.2); eGFR BLACK RACES > 60 (>60); eGFR NON BLACK RACES > 60 (>60)
[2017-05-27 04:41] LABS: BAND NEUTROPHILS % 4 % (0-10); PLATELET MORPHOLOGY COMMENT NORMAL (NORMAL)
[2017-05-27 04:42] LABS: ANISOCYTOSIS 1+
[2017-05-27] MEDS: SOLU-Medrol 40 MG VIAL IVP SCH ×3 (05:23→21:37)
[2017-05-27] MEDS: MAXIPIME IV SCH ×3 (05:24→21:36)
[2017-05-27] MEDS: SPIKE MINIBAG IV SCH ×3 (05:24→21:36)
[2017-05-27] MEDS: NS IV SCH ×3 (05:24→21:36)
[2017-05-27] MEDS: NS 1000 ML 1,000 ML IV SCH ×3 (06:06→21:36)
--- NOTE | 2017-05-27 07:37 | RAD ---
Examination: Portable AP chest History: Chest pain SOB Comparison reference 05/26/2017 Findings: Stable appearance of extensive pleural-parenchymal abnormality at the right base, with asso ciated volume loss and mediastinal shift. The left lung remains over expanded and clear. No change in position of central line. Impression: No change since 1 day prior. Ppm Reported By:
[2017-05-27] MEDS: MUCOMYST 20% 200 MG/ML NEB SCH ×2 (08:53→20:27)
[2017-05-27] MEDS: XOPENEX 1.25 MG/3 ML NEBULE NEB SCH ×4 (08:53→20:27)
[2017-05-27] MEDS: PULMICORT NEB TX 0.5 MG NEB SCH ×2 (08:53→20:27)
[2017-05-27] MEDS: ALBUMIN HUMAN 25%- 100ML 100 ML IV SCH (09:13)
[2017-05-27] MEDS: LEVAQUIN PREMIX IV 500 MG 500 MG/100 ML BAG IV SCH (09:14)
[2017-05-27] MEDS: FOLIC ACID TAB 1 MG PO SCH (09:18)
[2017-05-27] MEDS: MUCINEX EXPECTORANT PO SCH ×2 (09:18→20:44)
[2017-05-27] MEDS: MEGACE PO SCH ×2 (09:18→20:44)
[2017-05-27] MEDS: MIDODRINE HCL 2.5 MG PO SCH ×2 (09:18→20:45)
[2017-05-27] MEDS: TAB-A-VITE PO SCH (09:19)
[2017-05-27] MEDS: LANOXIN PO SCH (09:19)
[2017-05-27] MEDS: POLYSACCHARIDE IRON COMPLEX PO SCH (09:20)
[2017-05-27] MEDS: NIACIN PO SCH (09:20)
[2017-05-27] MEDS: FERROUS FUMARATE PO SCH (09:20)
[2017-05-27] MEDS: ASCORBIC ACID PO SCH (09:20)
[2017-05-27] MEDS: PROCALAMINE 3 % 1,000 ML IV SCH (20:40)
[2017-05-28] MEDS ORDERED: MAXIPIME VIAL 1 GM ONE ×3 (05:22→19:39)
[2017-05-28] MEDS ORDERED: NS 100 ML IV 100 ML IV ONE ×2 (05:22→19:41)
[2017-05-28 05:29] LABS: BASOPHILS % (AUTO) 0.1 % (0.2-1.0); HEMATOCRIT 25.2 % (42.0-54.0); HEMOGLOBIN 8.1 g/dL (13.5-18.0); LYMPHOCYTES # (AUTO) 0.3 X10^3/uL (1.3-2.9); LYMPHOCYTES % (AUTO) 3.2 % (21.0-51.0); MEAN CORPUSCULAR HEMOGLOBIN 24.3 pg (27.0-34.0); MEAN CORPUSCULAR HGB CONC 32.1 g/dL (33.0-35.0); MEAN CORPUSCULAR VOLUME 75.7 fL (80.0-100.0); MEAN PLATELET VOLUME 7.3 fL (7.4-11.0); MONOCYTES # (AUTO) 0.2 x10^3/uL (0.3-0.8); MONOCYTES % (AUTO) 2.5 % (0.0-13.0); NEUTROPHILS # (AUTO) 7.5 x10^3/uL (2.2-4.8); NEUTROPHILS % (AUTO) 94.2 % (42.0-75.0); PLATELET COUNT 230 X10^3/uL (150.0-450.0); RED BLOOD COUNT 3.33 X10^6/uL (4.7-6.0); RED CELL DISTRIBUTION WIDTH 21.4 % (11.6-16.5); WHITE BLOOD COUNT 7.9 X10^3/uL (3.6-10.0)
[2017-05-28] MEDS: SPIKE MINIBAG IV SCH ×3 (05:30→22:14)
[2017-05-28] MEDS: MAXIPIME IV SCH ×3 (05:30→22:14)
[2017-05-28] MEDS: NS IV SCH ×3 (05:30→22:14)
[2017-05-28] MEDS: NS 1000 ML 1,000 ML IV SCH ×3 (05:30→22:26)
[2017-05-28] MEDS: SOLU-Medrol 40 MG VIAL IVP SCH ×3 (05:30→22:26)
[2017-05-28 05:56] LABS: ALANINE AMINOTRANSFERASE 15 Units/L (12-78); ALBUMIN 2.2 g/dL (3.4-5.0); ALKALINE PHOSPHATASE 52 Units/L (46-116); ASPARTATE AMINO TRANSFERASE 12 Units/L (15-37); BLOOD UREA NITROGEN 20 mg/dL (7-18); CALCIUM 8.9 mg/dL (8.5-10.1); CARBON DIOXIDE 33.2 mmol/L (21-32); CHLORIDE 104 mmol/L (98-107); COR CA(FOR HYPOALB) 10.3 mg/dL (8.5-10.1); COR NA(FOR HYPERGLY) 142 mmol/L (136-145); CREATININE 0.59 mg/dL (0.70-1.30); SODIUM 141 mmol/L (136-145); TOTAL PROTEIN 6.2 g/dL (6.4-8.2); eGFR BLACK RACES > 60 (>60); eGFR NON BLACK RACES > 60 (>60)
[2017-05-28 06:18] LABS: BAND NEUTROPHILS % 7 % (0-10); PLATELET MORPHOLOGY COMMENT NORMAL (NORMAL)
[2017-05-28 06:19] LABS: ANISOCYTOSIS 1+
--- NOTE | 2017-05-28 07:14 | RAD ---
Examination: Portable AP chest History: SOB, lung cancer Comparison reference 05/27/2017 Findings: Considering minor technical differences, there is no change in appearance of the chest. Hea rt size remains normal, cardiac/mediastinal structures shifted to the right. Extensive opacification continues at the right base. The left lung is hyperexpanded and clear. No pneumothorax is identified. Impression: No interval change. Reported By:
[2017-05-28] MEDS: MEGACE PO SCH ×2 (08:42→20:28)
[2017-05-28] MEDS: LEVAQUIN PREMIX IV 500 MG 500 MG/100 ML BAG IV SCH (08:42)
[2017-05-28] MEDS: NIACIN PO SCH (08:49)
[2017-05-28] MEDS: ASCORBIC ACID PO SCH (08:49)
[2017-05-28] MEDS: FOLIC ACID TAB 1 MG PO SCH (08:49)
[2017-05-28] MEDS: POLYSACCHARIDE IRON COMPLEX PO SCH (08:49)
[2017-05-28] MEDS: FERROUS FUMARATE PO SCH (08:49)
[2017-05-28] MEDS: ALBUMIN HUMAN 25%- 100ML 100 ML IV SCH (08:49)
[2017-05-28] MEDS: MIDODRINE HCL 2.5 MG PO SCH ×2 (08:50→20:27)
[2017-05-28] MEDS: LANOXIN PO SCH (08:50)
[2017-05-28] MEDS: MUCINEX EXPECTORANT PO SCH ×2 (08:50→20:28)
[2017-05-28] MEDS: TAB-A-VITE PO SCH (08:50)
[2017-05-28] MEDS: PULMICORT NEB TX 0.5 MG NEB SCH ×2 (09:19→20:55)
[2017-05-28] MEDS: XOPENEX 1.25 MG/3 ML NEBULE NEB SCH ×4 (09:19→20:55)
[2017-05-28] MEDS: MUCOMYST 20% 200 MG/ML NEB SCH ×2 (09:19→20:55)
[2017-05-28] MEDS: MORPHINE SULFATE INJ 2 MG INJ IVP PRN ×2 (13:33→20:28)
[2017-05-28] MEDS ORDERED: NS 250 ML IV 250 ML IV ONE (16:01)
[2017-05-28] MEDS: PROCALAMINE 3 % 1,000 ML IV SCH (22:26)
[2017-05-29] MEDS: NORCO 10/325 TAB PO PRN ×4 (00:35→23:17)
[2017-05-29] MEDS: MORPHINE SULFATE INJ 2 MG INJ IVP PRN ×4 (03:51→21:55)
[2017-05-29] MEDS: NS 1000 ML 1,000 ML IV SCH ×3 (04:56→21:24)
[2017-05-29] MEDS ORDERED: MAXIPIME VIAL 1 GM ONE ×2 (05:38→21:10)
[2017-05-29] MEDS ORDERED: NS 100 ML IV 100 ML IV ONE ×3 (05:39→21:10)
[2017-05-29] MEDS: NS IV SCH ×3 (05:59→21:24)
[2017-05-29] MEDS: MAXIPIME IV SCH ×3 (05:59→21:24)
[2017-05-29] MEDS: SPIKE MINIBAG IV SCH ×3 (05:59→21:24)
[2017-05-29] MEDS: SOLU-Medrol 40 MG VIAL IVP SCH (06:00)
[2017-05-29 06:21] LABS: BASOPHILS % (AUTO) 0 % (0.2-1.0); HEMATOCRIT 30.2 % (42.0-54.0); HEMOGLOBIN 9.6 g/dL (13.5-18.0); LYMPHOCYTES # (AUTO) 0.3 X10^3/uL (1.3-2.9); LYMPHOCYTES % (AUTO) 2.2 % (21.0-51.0); MEAN CORPUSCULAR HEMOGLOBIN 23.9 pg (27.0-34.0); MEAN CORPUSCULAR HGB CONC 31.8 g/dL (33.0-35.0); MEAN CORPUSCULAR VOLUME 75.4 fL (80.0-100.0); MEAN PLATELET VOLUME 7.3 fL (7.4-11.0); MONOCYTES # (AUTO) 0.7 x10^3/uL (0.3-0.8); MONOCYTES % (AUTO) 4.9 % (0.0-13.0); NEUTROPHILS # (AUTO) 14.1 x10^3/uL (2.2-4.8); NEUTROPHILS % (AUTO) 92.9 % (42.0-75.0); PLATELET COUNT 312 X10^3/uL (150.0-450.0); RED BLOOD COUNT 4.01 X10^6/uL (4.7-6.0); RED CELL DISTRIBUTION WIDTH 21.1 % (11.6-16.5); WHITE BLOOD COUNT 15.1 X10^3/uL (3.6-10.0)
[2017-05-29 06:42] LABS: BAND NEUTROPHILS % 6 % (0-10); HYPOCHROMASIA 2+; PLATELET MORPHOLOGY COMMENT NORMAL (NORMAL)
[2017-05-29 06:44] LABS: ALANINE AMINOTRANSFERASE 17 Units/L (12-78); ALBUMIN 2.7 g/dL (3.4-5.0); ALKALINE PHOSPHATASE 53 Units/L (46-116); ANISOCYTOSIS 1+; ASPARTATE AMINO TRANSFERASE 14 Units/L (15-37); BLOOD UREA NITROGEN 22 mg/dL (7-18); CALCIUM 9.5 mg/dL (8.5-10.1); CARBON DIOXIDE 34.1 mmol/L (21-32); CHLORIDE 104 mmol/L (98-107); COR CA(FOR HYPOALB) 10.5 mg/dL (8.5-10.1); COR NA(FOR HYPERGLY) 142 mmol/L (136-145); CREATININE 0.63 mg/dL (0.70-1.30); SODIUM 141 mmol/L (136-145); TOTAL PROTEIN 6.6 g/dL (6.4-8.2); eGFR BLACK RACES > 60 (>60); eGFR NON BLACK RACES > 60 (>60)
[2017-05-29] MEDS: POLYSACCHARIDE IRON COMPLEX PO SCH (09:00)
[2017-05-29] MEDS: NIACIN PO SCH (09:00)
[2017-05-29] MEDS: FERROUS FUMARATE PO SCH (09:00)
[2017-05-29] MEDS: ASCORBIC ACID PO SCH (09:00)
[2017-05-29] MEDS: LEVAQUIN PREMIX IV 500 MG 500 MG/100 ML BAG IV SCH (09:01)
[2017-05-29] MEDS: ALBUMIN HUMAN 25%- 100ML 100 ML IV SCH (09:01)
[2017-05-29] MEDS: MEGACE PO SCH ×2 (09:02→21:23)
[2017-05-29] MEDS: FOLIC ACID TAB 1 MG PO SCH (09:02)
[2017-05-29] MEDS: TAB-A-VITE PO SCH (09:02)
[2017-05-29] MEDS: MUCINEX EXPECTORANT PO SCH ×2 (09:02→21:23)
[2017-05-29] MEDS: PULMICORT NEB TX 0.5 MG NEB SCH ×2 (09:03→21:45)
[2017-05-29] MEDS: XOPENEX 1.25 MG/3 ML NEBULE NEB SCH ×2 (09:03→13:42)
[2017-05-29] MEDS: LANOXIN PO SCH (09:03)
[2017-05-29] MEDS: MIDODRINE HCL 2.5 MG PO SCH ×2 (09:36→21:24)
[2017-05-29] MEDS ORDERED: PROVENTIL NEB TX 0.083% 2.5MG/ 3ML ONE (11:40)
[2017-05-29] MEDS: PROVENTIL NEB TX 0.083% 2.5MG/ 3ML NEB SCH ×3 (12:03→21:45)
[2017-05-29] MEDS: DUONEB 0.5 MG/3 MG NEB SCH ×2 (12:03→13:43)
[2017-05-29] MEDS: COLACE CAP 100 MG PO SCH ×2 (13:47→21:23)
[2017-05-29] MEDS: MILK OF MAGNESIA PO SCH ×2 (13:47→21:23)
[2017-05-29] MEDS: PROCALAMINE 3 % 1,000 ML IV SCH ×2 (15:28→21:24)
[2017-05-29] MEDS ORDERED: SALINE 3% 15 ML NEB TX ONE (23:13)
[2017-05-30] MEDS: VALIUM INJ IVP PRN ×2 (01:16→20:05)
[2017-05-30] MEDS ORDERED: NS 100 ML IV 100 ML IV ONE (05:27)
[2017-05-30] MEDS ORDERED: MAXIPIME VIAL 1 GM ONE (05:28)
[2017-05-30] MEDS: MORPHINE SULFATE INJ 2 MG INJ IVP PRN ×2 (05:39→17:22)
[2017-05-30] MEDS: NS 1000 ML 1,000 ML IV SCH ×2 (05:39→12:19)
[2017-05-30] MEDS: NS IV SCH ×3 (05:43→14:28)
[2017-05-30] MEDS: MAXIPIME IV SCH ×3 (05:43→14:28)
[2017-05-30 06:01] LABS: BASOPHILS % (AUTO) 0.2 % (0.2-1.0); EOSINOPHILS % (AUTO) 0.1 % (0.9-2.9); HEMATOCRIT 33.1 % (42.0-54.0); HEMOGLOBIN 10.2 g/dL (13.5-18.0); LYMPHOCYTES # (AUTO) 1.2 X10^3/uL (1.3-2.9); LYMPHOCYTES % (AUTO) 5.3 % (21.0-51.0); MEAN CORPUSCULAR HEMOGLOBIN 23.8 pg (27.0-34.0); MEAN CORPUSCULAR HGB CONC 30.9 g/dL (33.0-35.0); MEAN PLATELET VOLUME 7.5 fL (7.4-11.0); MONOCYTES # (AUTO) 1.2 x10^3/uL (0.3-0.8); MONOCYTES % (AUTO) 5.2 % (0.0-13.0); NEUTROPHILS # (AUTO) 20.4 x10^3/uL (2.2-4.8); NEUTROPHILS % (AUTO) 89.2 % (42.0-75.0); PLATELET COUNT 445 X10^3/uL (150.0-450.0); WHITE BLOOD COUNT 22.8 X10^3/uL (3.6-10.0)
[2017-05-30 06:06] LABS: BLOOD UREA NITROGEN 23 mg/dL (7-18); CALCIUM 9.6 mg/dL (8.5-10.1); CARBON DIOXIDE 35.4 mmol/L (21-32); CHLORIDE 106 mmol/L (98-107); CREATININE 0.54 mg/dL (0.70-1.30); SODIUM 143 mmol/L (136-145); eGFR BLACK RACES > 60 (>60); eGFR NON BLACK RACES > 60 (>60)
[2017-05-30 06:21] LABS: PLATELET MORPHOLOGY COMMENT NORMAL (NORMAL)
[2017-05-30] MEDS ORDERED: COLACE CAP 100 MG PO SCH (08:00)
[2017-05-30] MEDS ORDERED: MILK OF MAGNESIA PO SCH (08:00)
[2017-05-30] MEDS: LEVAQUIN PREMIX IV 500 MG 500 MG/100 ML BAG IV SCH (08:20)
[2017-05-30] MEDS: ALBUMIN HUMAN 25%- 100ML 100 ML IV SCH (08:20)
[2017-05-30] MEDS: LANOXIN PO SCH (08:21)
[2017-05-30] MEDS: MUCINEX EXPECTORANT PO SCH (08:22)
[2017-05-30] MEDS: TAB-A-VITE PO SCH (08:22)
[2017-05-30] MEDS: MEGACE PO SCH ×2 (08:22→21:24)
[2017-05-30] MEDS: FOLIC ACID TAB 1 MG PO SCH (08:23)
[2017-05-30] MEDS: POLYSACCHARIDE IRON COMPLEX PO SCH (08:23)
[2017-05-30] MEDS: NIACIN PO SCH (08:23)
[2017-05-30] MEDS: FERROUS FUMARATE PO SCH (08:23)
[2017-05-30] MEDS: ASCORBIC ACID PO SCH (08:23)
[2017-05-30] MEDS: MIDODRINE HCL 2.5 MG PO SCH ×2 (08:24→21:24)
[2017-05-30] MEDS: NORCO 10/325 TAB PO PRN (08:28)
[2017-05-30] MEDS: PROVENTIL NEB TX 0.083% 2.5MG/ 3ML NEB SCH ×4 (08:54→21:49)
[2017-05-30] MEDS: PULMICORT NEB TX 0.5 MG NEB SCH ×2 (08:54→21:49)
[2017-05-30] MEDS ORDERED: LASIX IVP ONE (09:09)
[2017-05-30 09:56] LABS: ABG BASE EXCESS 8.2 mmol/L (-2.0-2.0)
[2017-05-30 09:57] LABS: ABG HCO3 39.3 mmol/L (22-26)
--- NOTE | 2017-05-30 09:57 | RAD ---
Examination: Portable AP chest History: SOB, lung cancer Comparison reference 05/28/2017 Findings: There is no change in the extensive pleural-parenchymal opacification of the right lower ch est with shift of the heart and mediastinum to the right. There is increasing interstitial process in the over expanded left lung. No consolidation or pneumothorax is seen. Impression: Increasing interstitial process in the left lung since prior studies is consistent with d eveloping congestion/pulmonary edema, less likely inflammatory process. Correlate clinically with con tinued follow-up. Reported By:
[2017-05-30 14:05] LABS: ABG BASE EXCESS 10.2 mmol/L (-2.0-2.0)
[2017-05-30 14:06] LABS: ABG HCO3 39.9 mmol/L (22-26)
[2017-05-30] MEDS ORDERED: LASIX IVP SCH (17:30)
[2017-05-30 19:39] LABS: ABG BASE EXCESS 7.8 mmol/L (-2.0-2.0)
[2017-05-30 19:41] LABS: ABG HCO3 40.1 mmol/L (22-26)
[2017-05-30] MEDS ORDERED: XOPENEX 1.25 MG/3 ML NEBULE NEB PRN (20:13)
[2017-05-30] MEDS ORDERED: NS 250 ML IV 250 ML IV ONE (20:13)
[2017-05-30] MEDS ORDERED: ZITHROMAX INJ 500 MG VIAL 500 MG in D5W 250 ML IV 250 ML IV SCH (20:15)
--- NOTE | 2017-05-30 20:17 | RAD ---
HISTORY: Worsening shortness of breath. Study: Portable chest. Comparison: Chest x-ray dated same day at 9:53 a.m. Findings: The trachea is midline. The cardiac silhouette is obscured but otherwise unchanged. A vascular stent is seen overlying the chest. Worsening pleural effusion on the right with associated collapse of th e right upper lung and mediastinal shift. The left lung appears unchanged. No obvious pneumothorax. The bony thorax appears unchanged. IMPRESSION: Enlarging right pleural effusion with associated right upper lobe collapse. Reported By:
[2017-05-30] MEDS ORDERED: BROVANA IN SCH (21:00)
[2017-05-30] MEDS: COLACE CAP 100 MG PO SCH (21:23)
[2017-05-30] MEDS: MILK OF MAGNESIA PO SCH (21:24)
[2017-05-30 22:00] VITALS: BP 92/52
[2017-05-30] MEDS ORDERED: SOLU-Medrol 125 MG VIAL IVP SCH (22:00)
[2017-05-31] MEDS ORDERED: XOPENEX 1.25 MG/3 ML NEBULE NEB SCH
[2017-05-31] MEDS ORDERED: LASIX IVP SCH ×2 (09:00)
== END 2017-05-31 02:30 | disposition expired | DRG 202 ==
LOC: ER 10:52 → OBSVTOIN 14:09 → MED/SURG 14:09 → ICU 05-30 09:25
PROVIDERS: ADMIT Internal Medicine; ATTEND Internal Medicine
DX: J20.8 Acute bronchitis due to other specified organisms (principal); J18.0 Bronchopneumonia, unspecified organism; J96.00 Acute respiratory failure, unspecified whether with hypoxia or hypercapnia; J44.1 Chronic obstructive pulmonary disease with (acute) exacerbation; C34.90 Malignant neoplasm of unspecified part of unspecified bronchus or lung; R07.89 Other chest pain; R94.31 Abnormal electrocardiogram [ECG] [EKG]; R53.1 Weakness; Z66 Do not resuscitate; R26.89 Other abnormalities of gait and mobility
CPT/HCPCS: 36415; 36591; 36600; 71010; 71020; 80048; 80053; 80162; 81001; 82550; 82553; 82803; 83605; 83735; 84484; 85025; 85652; 86140; 87040; 87070; 87086; 87205; 93005; 93010; 94640; 94660; 94760; 96365; 96367; 96374; 97535; 99231; 99284; A4216; A4222; A4618; A7030; B5200; P9047; S0179; J0692; J1940; J1956; J2270; J2920; J3360; J7506; J7608; J7613; J7620; J7626